=== PATIENT | female | born 2000 | race Caucasian/White ===

== ENCOUNTER 2021-08-08 01:50 | Emergency (ER) | payer OTHER ==
[2021-08-08] MEDS ORDERED: Amoxicillin/Clavulanate K 875-125 MG Tab PO ONE (02:15)
--- NOTE | 2021-08-08 02:24 | EDM.PDOC ---
ED HPI GENERAL MEDICAL PROBLEM - General Chief Complaint: ENT Problem Stated Complaint: EAR PAIN Time Seen by Provider: 08/08/21 02:04 Source of Information: Reports: Patient History Limitations: Reports: No Limitations - History of Present Illness INITIAL COMMENTS - FREE TEXT/NARRATIVE: Patient is a 21-year-old female is complaining of having left sided earache that is been going on for several days but pain got much worse tonight when she had a sudden sensation of the eardrum bursting and had a discharge of a clear bloody fluid. Patient has had ear infections in the past but does not remember what antibiotic it has worked well for her. She recently had a sore throat and is currently feeling congested. She has no cough. Patient was vaccinated with Covid at the beginning of the month. She has no other Covid symptoms. Rates her pain currently is 4 out of 10 intensity is taken nothing for it. Onset: Today Duration: Getting Worse Location: Reports: Head Quality: Reports: Ache Severity: Moderate Left Ear Pain Score (Numeric/FACES): 7 - Related Data Allergies Allergy/AdvReac Type Severity Reaction Status Date / Time No Known Allergies Allergy Verified 08/08/21 02:05 Home Meds: Home Meds Amoxicillin/Potassium Clav [Augmentin 875-125 Tablet] 1 each PO BID #20 tablet 08/08/21 [Rx] Ciprofloxacin/Hydrocortisone [Cipro HC Otic Susp] 3 drop OT BID 5 Days #1 bottle 08/08/21 [Rx] Past Medical History - Past Health History Medical/Surgical History: Denies Medical/Surgical History Social & Family History - Tobacco Use Tobacco Use Status *Q: Never Tobacco User ED ROS ENT - Review of Systems Review Of Systems: Comprehensive ROS is negative, except as noted in HPI. Constitutional: Reports: No Symptoms HEENT: Reports: Ear Discharge, Ear Pain, Hearing Loss Respiratory: Reports: No Symptoms. Denies: Cough GI/Abdominal: Reports: No Symptoms : Reports: No Symptoms ED EXAM, ENT - Physical Exam Exam: See Below Exam Limited By: No Limitations General Appearance: Alert, No Apparent Distress Ears: TM Dullness, TM Erythema, TM Fluid, TM Perforation Head: Normocephalic Respiratory/Chest: No Respiratory Distress GI/Abdominal: No Distention Extremities: Normal Inspection Neurological: Alert, Oriented Skin: Warm, Intact Course - Vital Signs Text/Narrative:: I am starting the patient on Augmentin and will give her prescription for Cipro otic drop. I am recommending she continue taking ibuprofen or Tylenol and will give her a prescription for some [place] if needed. She is to return to emergency department if worse and follow-up with ENT for recheck after she finishes her antibiotic course. Last Recorded V/S: Last Vital Signs Temp 98.6 F 08/08/21 02:02 Pulse 82 08/08/21 02:02 Resp 16 08/08/21 02:02 BP 112/75 08/08/21 02:02 Pulse Ox 100 08/08/21 02:02 - Orders/Labs/Meds Meds: Medications Discontinued Medications Generic Name Dose Route Start Last Admin Trade Name Freq PRN Reason Stop Dose Admin Amoxicillin/Clavulanate Potassium 1 tab 08/08/21 02:15 Amoxicillin/Clavulanate K 875-125 Mg Tab PO 08/08/21 02:16 ONETIME ONE Departure - Departure Time of Disposition: 02:23 Disposition: Home, Self-Care 01 Condition: Good Clinical Impression: Otitis media - Discharge Information Prescriptions: Amoxicillin/Potassium Clav [Augmentin 875-125 Tablet] 1 each PO BID #20 tablet Ciprofloxacin/Hydrocortisone [Cipro HC Otic Susp] 3 drop OT BID 5 Days #1 bottle Instructions: Otitis Media, Adult, [id number], Eardrum Rupture, [id number] Referrals: PCP,None [Primary Care Provider] - Additional Instructions: Meds as prescribed. Follow-up with ENT in 10 to 14 days for recheck. Return to ER if worse. Tylenol and ibuprofen as needed. [place] if needed. Sepsis Event Note (ED) - Evaluation Sepsis Screening Result: No Definite Risk - Focused Exam Vital Signs: Vital Signs Temp Pulse Resp BP Pulse Ox 08/08/21 02:02 98.6 F 82 16 112/75 100
== END 2021-08-08 02:41 | disposition home or self-care (01) ==
LOC: JD.ED 01:50
DX: H66.92 Otitis media, unspecified, left ear (principal)
CPT/HCPCS: 99282; A9270; 99283